=== PATIENT | female | born 1995 | race African-American/Black ===

== ENCOUNTER → 2019-02-19 | Outpatient (CLI) | payer OTHER ==
--- NOTE | 2019-02-19 10:19 | Diagnostic Imaging Report ---
Ultrasound of the left breast. Indication: Left breast lump. There are no prior studies available for comparison. By history, the patient has a palpable abnormality in the 2 o'clock position left breast approximately 3 cm. In this area there is a 1.6 x 0.9 x 1.3 cm slightly lobulated solid mass. In a patient this age, I suspect this is most likely a benign process such as a fibroadenoma. Even so, ultrasound guided biopsy would be recommended to exclude malignancy. If there is no intervention at this time, then a short-term (3 month) followup ultrasound exam should be obtained. There is no other finding identified. Impression: 1. There is a small solid lesion in the area of the patient's palpable adenopathy. Most likely this is a benign process. Recommendations as above. 2. These results were discussed with Tamela Gutiérrez APRN. ACR BI-RADS Category 4: Suspicious abnormality. Result letter will be mailed to the patient. Note: At least 10% of breast cancer is not imaged by mammography. Dictated by: Dictated on workstation # [id number]
== END ==
LOC: RAD 09:12
PROVIDERS: ATTEND Nurse Practitioner Primary Care
DX: N63.20 Unspecified lump in the left breast, unspecified quadrant (principal)
CPT/HCPCS: 76642